=== PATIENT | female | born 1970 | race Caucasian/White ===

== ENCOUNTER 2016-09-12 17:10 | Emergency (ER) | payer OTHER ==
[~2016-09-12] VITALS: Ht 162.6 cm; Wt 54.5 kg
[2016-09-12] MEDS ORDERED: NIFE10 PO (17:24)
[2016-09-12] MEDS ORDERED: LIB25 PO (17:24)
[2016-09-12] MEDS ORDERED: GABA-531 PO (17:24)
[2016-09-12] MEDS ORDERED: MET500 PO (17:24)
[2016-09-12 17:43] VITALS: BP 115/82
== END 2016-09-12 18:00 | disposition home or self-care (01) ==
LOC: EMS 17:12
DX: Z76.0 Encounter for issue of repeat prescription (principal); I10 Essential (primary) hypertension; F19.90 Other psychoactive substance use, unspecified, uncomplicated
CPT/HCPCS: 99283

== ENCOUNTER 2016-09-17 10:30 | Emergency (ER) | payer OTHER ==
[~2016-09-17] VITALS: Ht 167.6 cm; Wt 59.5 kg
[~2016-09-17 10:30] MED LIST: GABA-531 PO; LIB25 PO; MET500 PO; NIFE10 PO
[2016-09-17] MEDS ORDERED: NIFE30TA5 PO (10:50)
[2016-09-17 11:52] LABS: BASOPHILS % (AUTO) 0.8 % (0.0-2.0); EOSINOPHILS % (AUTO) 1.3 % (1.0-6.0); HEMATOCRIT 33.5 % (36-46); HEMOGLOBIN 10.9 g/dL (12.0-16.0); LYMPHOCYTES % (AUTO) 28.4 % (22.0-44.0); MEAN CORPUSCULAR HEMOGLOBIN 31.9 pg (26.0-34.0); MEAN CORPUSCULAR HGB CONC 32.4 G/dL (31.0-37.0); MEAN CORPUSCULAR VOLUME 98 fL (80-100); MONOCYTES # (AUTO) 0.5 K/uL (0.1-1.0); MONOCYTES % (AUTO) 7.2 % (2.0-9.0); NEUTROPHILS # (AUTO) 4.4 K/uL (1.8-7.7); NEUTROPHILS % (AUTO) 62.3 % (40.0-70.0); PLATELET COUNT (AUTO) 264 K/uL (150-450); RED BLOOD CELL COUNT(AUTO) 3.41 MIL/uL (4.00-5.20); RED CELL DISTRIBUTION WIDTH 12.3 % (11.5-14.5)
[2016-09-17 12:01] LABS: ANION GAP 5 mmol/L (8-16); CALCIUM, TOTAL 8.4 mg/dL (8.8-10.5); CARBON DIOXIDE 28 mmol/L (22-29); CHLORIDE 104 mmol/L (98-107); CREATININE 0.76 mg/dL (0.60-1.30); GLOMERULAR FILTR. RATE CALC > 60 mL/min (>60); POTASSIUM 3.5 mmol/L (3.5-5.1); SODIUM SERUM 137 mmol/L (136-145); UREA NITROGEN, BLOOD 15 mg/dL (7-18)
[2016-09-17 12:07] LABS: ALANINE AMINOTRANSFERASE 65 U/L (12-78); ALBUMIN 3.3 g/dL (3.4-5.0); ASPARTATE AMINOTRANSFERASE 42 U/L (15-37); BILIRUBIN,TOTAL 0.2 mg/dL (0.1-1.0); TOTAL PROTEIN, SERUM 6.2 g/dL (6.4-8.2)
[2016-09-17 14:00] LABS: APPEARANCE,URINE CLEAR (CLEAR); GLUCOSE, URINE (UA) NEGATIVE (NEGATIVE); KETONES,URINE NEGATIVE (NEGATIVE); LEUKOCYTE ESTERASE ,URINE NEGATIVE (NEGATIVE); OCCULT BLOOD,URINE NEGATIVE (NEGATIVE); PH,URINE 7.5 (5.0-8.0); PROTEIN,URINE NEGATIVE (NEGATIVE)
[2016-09-17 14:08] LABS: RBC,URINE None Seen /HPF (0-2); SQUAMOUS EPITHELIAL CELL,UR Rare /LPF (None Seen); WBC,URINE None Seen /HPF (0-5)
[2016-09-17] MEDS ORDERED: KETOROLAC TROMETHAMINE 60 MG/2 ML VIAL IM ONE ×2 (14:45)
[2016-09-17 14:46] VITALS: BP 121/73
== END 2016-09-17 14:49 | disposition home or self-care (01) ==
LOC: EMS 10:31
DX: R60.0 Localized edema (principal); I10 Essential (primary) hypertension; F15.90 Other stimulant use, unspecified, uncomplicated
CPT/HCPCS: 36415; 80053; 81001; 85025; 93005; 93970; 96372; 99285; J1885

== ENCOUNTER 2016-10-05 13:58 | Emergency (ER) | payer OTHER ==
[~2016-10-05] VITALS: Ht 162.6 cm; Wt 59.1 kg
[~2016-10-05 13:58] MED LIST changes: -NIFE10 PO; +NIFE30TA5 PO
[2016-10-05] MEDS ORDERED: ZOLP10 PO (14:04)
[2016-10-05] MEDS ORDERED: BISA5TAB12 PO (14:04)
[2016-10-05] MEDS ORDERED: VITAD50000 PO (14:04)
[2016-10-05 16:07] VITALS: BP 122/72
== END 2016-10-05 18:34 | disposition home or self-care (01) ==
LOC: EMS 14:00
DX: F41.9 Anxiety disorder, unspecified (principal); F15.10 Other stimulant abuse, uncomplicated; F10.10 Alcohol abuse, uncomplicated; F13.10 Sedative, hypnotic or anxiolytic abuse, uncomplicated; F12.90 Cannabis use, unspecified, uncomplicated; F32.9 Major depressive disorder, single episode, unspecified; I10 Essential (primary) hypertension; Z79.899 Other long term (current) drug therapy
CPT/HCPCS: 99284

== ENCOUNTER 2017-04-11 10:03 | Emergency (ER) | payer OTHER ==
[~2017-04-11] VITALS: Ht 162.6 cm; Wt 65.5 kg
[~2017-04-11 10:03] MED LIST changes: +BISA5TAB12 PO; +VITAD50000 PO; +ZOLP10TA7 PO
[2017-04-11] MEDS ORDERED: CHOL50004 PO (10:23)
[2017-04-11] MEDS ORDERED: BUPR300T54 PO (10:23)
[2017-04-11] MEDS ORDERED: OLAN5TAB2 PO (10:23)
[2017-04-11 10:28] VITALS: BP 110/69
[2017-04-11] MEDS ORDERED: PHENobarbital 30 MG TABLET PO ONE (11:45)
== END 2017-04-11 11:52 | disposition home or self-care (01) ==
LOC: EMS 10:08
DX: F10.20 Alcohol dependence, uncomplicated (principal); I10 Essential (primary) hypertension; F15.90 Other stimulant use, unspecified, uncomplicated; Z02.89 Encounter for other administrative examinations; Y90.4 Blood alcohol level of 80-99 mg/100 ml
CPT/HCPCS: 36415; 99283; G0480